=== PATIENT | female | born 1980 | race Caucasian/White ===

== ENCOUNTER 2019-02-22 15:30 | Emergency (ER) | payer OTHER ==
[2019-02-22 17:07] LABS: Basophils % (Auto) 0.4 % (0.0-1.8); Eosinophils # (Auto) 0.1 K/mm3 (0.0-0.4); Eosinophils % (Auto) 2.2 % (0.0-4.3); Hematocrit 35.5 % (30.3-42.9); Hemoglobin 12.2 gm/dl (10.1-14.3); Lymphocytes # (Auto) 1.1 K/mm3 (1.2-5.4); Lymphocytes % (Auto) 20.5 % (13.4-35.0); Mean Corpuscular HGB Conc 34 % (30-34); Mean Corpuscular Volume 86 fl (79-97); Monocytes # (Auto) 0.4 K/mm3 (0.0-0.8); Monocytes % (Auto) 7.3 % (0.0-7.3); Platelet Count 208 K/mm3 (140-440); Red Cell Distribution Width 13.2 % (13.2-15.2)
[2019-02-22 18:37] LABS: Alanine Aminotransferase 17 units/L (7-56); Albumin 4.1 g/dL (3.9-5); BUN/Creatinine Ratio 12; Blood Urea Nitrogen 7 mg/dL (7-17); Calcium 8.2 mg/dL (8.4-10.2); Hemolysis Index 10
[2019-02-22 19:39] LABS: Bacteria,Urine 1+ /HPF (Negative); Bilirubin,Urine NEG (Negative); Blood,Urine LG (Negative); Color,Urine Straw (Yellow); Protein,Urine <15 mg/dL mg/dL (Negative); Urobilinogen,Urine < 2.0 mg/dL (<2.0)
[2019-02-22] MEDS ORDERED: BENADRYL IV ONE (20:23)
[2019-02-22] MEDS ORDERED: REGLAN IV ONE (20:23)
[2019-02-22] MEDS ORDERED: TORADOL IV ONE (20:23)
[2019-02-22] MEDS ORDERED: NACL 0.9% 1000 ML 1,000 ML IV ONE (20:23)
--- NOTE | 2019-02-22 20:59 | Emergency Department Report ---
ED Headache HPI - General Chief Complaint: Headache Stated Complaint: PRESSURE/NAUSEA Time Seen by Provider: 02/22/19 20:04 - History of Present Illness Initial Comments: Patient is a 39-year-old female who presents emergency room with complaints of a frontal headache that began 2 days ago. she describes the pain as a pressure. She has intermittent nausea and vomiting when the pain becomes uncomfortable. She also has associated photophobia and discomfort with loud noises. She denies any vision changes, numbness, weakness, recent illness, fever, neck stiffness. States she has taken Tylenol and ibuprofen without much relief. States that she has had headaches similar to this in the past. She has a past medical history of hypertension and seasonal allergies. She denies any allergies medications. States her last menstrual cycle was last week. Allergies/Adverse Reactions: Allergies No Known Allergies Allergy (Verified 03/19/16 01:10) Home Medications: Ambulatory Orders Diclofenac Dr [Sudhakar Valle] 75 mg PO Q12H #60 tablet 06/02/13 traMADol [Ultram 50 MG tab] 50 mg PO Q6HR PRN #20 tablet 06/02/13 Loratadine [Claritin] 10 mg PO DAILY #30 tablet 03/28/15 Promethazine /Codeine [Phenergan/Codeine 6.25-10 mg/5 ml] 5 ml PO Q6H PRN #150 ml 03/28/15 Sulfamethoxazole/Trimethoprim [Bactrim DS TAB] 1 each PO BID #20 tablet 03/28/15 predniSONE [Deltasone] 40 mg PO QDAY #10 tab 03/28/15 Atenolol/Chlorthalidone [Tenoretic 50-25] 1 tab PO QDAY #30 tab 03/19/16 Benzonatate [Tessalon Perles] 100 mg PO Q8HR #10 capsule 03/19/16 Pseudoeph/Dm/Guaifen/Acetamin [Duraflu 307-49-521-60 mg Tab] 1 each PO BID #14 tablet 03/19/16 Cetirizine HCl [Zyrtec 10mg tab] 10 mg PO DAILY #14 tablet 02/22/19 Fluticasone [Flonase] 1 spray NS QDAY #1 bottle 02/22/19 Rizatriptan Benzoate [Maxalt] 10 mg PO PRN PRN #10 tab 02/22/19 ED Review of Systems ROS: Stated complaint: PRESSURE/NAUSEA Other details as noted in HPI Comment: All other systems reviewed and negative ED Past Medical Hx - Past Medical History Previous Medical History?: Yes Hx Hypertension: Yes (not taken medication in the past year due to no insurance) Hx Arthritis: Yes Additional medical history: chronic right knee pain - Surgical History Past Surgical History?: Yes Additional Surgical History: tubal ligation 2010 - Social History Smoking Status: Never Smoker - Medications Home Medications: Home Medications Medication Instructions Recorded Confirmed Last Taken Type Diclofenac Dr [Voltaren Dr] 75 mg PO Q12H #60 tablet 06/02/13 Unknown Rx traMADol [Ultram 50 MG tab] 50 mg PO Q6HR PRN #20 tablet 06/02/13 Unknown Rx Loratadine [Claritin] 10 mg PO DAILY #30 tablet 03/28/15 Unknown Rx Promethazine /Codeine 5 ml PO Q6H PRN #150 ml 03/28/15 Unknown Rx [Phenergan/Codeine 6.25-10 mg/5 ml] Sulfamethoxazole/Trimethoprim 1 each PO BID #20 tablet 03/28/15 Unknown Rx [Bactrim DS TAB] predniSONE [Deltasone] 40 mg PO QDAY #10 tab 03/28/15 Unknown Rx Atenolol/Chlorthalidone [Tenoretic 1 tab PO QDAY #30 tab 03/19/16 Unknown Rx 50-25] Benzonatate [Tessalon Perles] 100 mg PO Q8HR #10 capsule 03/19/16 Unknown Rx Pseudoeph/Dm/Guaifen/Acetamin 1 each PO BID #14 tablet 03/19/16 Unknown Rx [Duraflu 316-02-683-60 mg Tab] Cetirizine HCl [Zyrtec 10mg tab] 10 mg PO DAILY #14 tablet 02/22/19 Unknown Rx Fluticasone [Flonase] 1 spray NS QDAY #1 bottle 02/22/19 Unknown Rx Rizatriptan Benzoate [Maxalt] 10 mg PO PRN PRN #10 tab 02/22/19 Unknown Rx ED Physical Exam - General Limitations: No Limitations General appearance: alert, in no apparent distress - Head Head exam: Present: atraumatic, normocephalic - Eye Eye exam: Present: normal appearance, PERRL, EOMI. Absent: conjunctival injection, nystagmus, periorbital swelling, periorbital tenderness - ENT ENT exam: Present: normal orophraynx, mucous membranes moist, other (pale boggy turbinates with clear nasal drainage) - Neck Neck exam: Present: full ROM. Absent: meningismus - Respiratory Respiratory exam: Present: normal lung sounds bilaterally. Absent: respiratory distress, wheezes, rales, rhonchi, stridor, chest wall tenderness, accessory muscle use, decreased breath sounds, prolonged expiratory - Cardiovascular Cardiovascular Exam: Present: regular rate, normal rhythm, normal heart sounds. Absent: systolic murmur, diastolic murmur, rubs, gallop - Neurological Exam Neurological exam: Present: alert, oriented X3, CN II-XII intact, normal gait. Absent: motor sensory deficit - Psychiatric Psychiatric exam: Present: normal affect, normal mood - Skin Skin exam: Present: warm, dry, intact ED Course Vital Signs 02/22/19 02/22/19 02/22/19 15:38 16:18 22:56 Temperature 98.3 F 98.3 F Pulse Rate 91 H 89 80 Respiratory 18 18 18 Rate Blood Pressure 125/79 125/79 Blood Pressure 127/82 [Left] O2 Sat by Pulse 98 100 99 Oximetry ED Medical Decision Making - Lab Data Result diagrams: 02/22/19 16:24 02/22/19 16:24 Lab Results 02/22/19 02/22/19 02/22/19 Range/Units 16:24 16:24 Unknown WBC 5.4 (4.5-11.0) K/mm3 RBC 4.10 (3.65-5.03) M/mm3 Hgb 12.2 (10.1-14.3) gm/dl Hct 35.5 (30.3-42.9) % MCV 86 (79-97) fl MCH 30 (28-32) pg MCHC 34 (30-34) % RDW 13.2 (13.2-15.2) % Plt Count 208 (140-440) K/mm3 Lymph % (Auto) 20.5 (13.4-35.0) % [place] % (Auto) 7.3 (0.0-7.3) % Eos % (Auto) 2.2 (0.0-4.3) % Baso % (Auto) 0.4 (0.0-1.8) % Lymph # 1.1 L (1.2-5.4) K/mm3 [place] # 0.4 (0.0-0.8) K/mm3 Eos # 0.1 (0.0-0.4) K/mm3 Baso # 0.0 (0.0-0.1) K/mm3 Seg Neutrophils % 69.6 (40.0-70.0) % Seg Neutrophils # 3.8 (1.8-7.7) K/mm3 Sodium 140 (137-145) mmol/L Potassium 3.2 L (3.6-5.0) mmol/L Chloride 101.0 (98-107) mmol/L Carbon Dioxide 25 (22-30) mmol/L Anion Gap 17 mmol/L BUN 7 (7-17) mg/dL Creatinine 0.6 L (0.7-1.2) mg/dL Estimated GFR > 60 ml/min BUN/Creatinine Ratio 12 % Glucose 99 (65-100) mg/dL Calcium 8.2 L (8.4-10.2) mg/dL Total Bilirubin 0.70 (0.1-1.2) mg/dL AST 18 (5-40) units/L ALT 17 (7-56) units/L Alkaline Phosphatase 68 (35-129) units/L Total Protein 7.4 (6.3-8.2) g/dL Albumin 4.1 (3.9-5) g/dL Albumin/Globulin Ratio 1.2 % Urine Color Straw (Yellow) Urine Turbidity Slightly-cloudy (Clear) Urine pH 7.0 (5.0-7.0) Ur Specific [place] 1.003 (1.003-1.030) Urine Protein <15 mg/dl (Negative) mg/dL Urine Glucose (UA) Neg (Negative) mg/dL Urine Ketones Neg (Negative) mg/dL Urine Blood Lg (Negative) Urine Nitrite Neg (Negative) Urine Bilirubin Neg (Negative) Urine Urobilinogen < 2.0 (<2.0) mg/dL Ur Leukocyte Esterase Tr (Negative) Urine WBC (Auto) 4.0 (0.0-6.0) /HPF Urine RBC (Auto) 8.0 (0.0-6.0) /HPF U Epithel Cells (Auto) 11.0 (0-13.0) /HPF Urine Bacteria (Auto) 1+ (Negative) /HPF - Medical Decision Making Patient is a 39-year-old female who presents emergency room with complaints of a frontal headache that began 2 days ago. she describes the pain as a pressure. She has intermittent nausea and vomiting when the pain becomes uncomfortable. She also has associated photophobia and discomfort with loud noises. She denies any vision changes, numbness, weakness, recent illness, fever, neck stiffness. States she has taken Tylenol and ibuprofen without much relief. States that sh e has had headaches similar to this in the past. She has a past medical history of hypertension and seasonal allergies. She denies any allergies medications. States her last menstrual cycle was last week. VSS. no focal neuro deficits on exam. labs significant for hypokalemia, repleted with kdur. Patient given 1 L of fluids, Toradol, Reglan, Benadryl and headache completely resolved. Patient gi es prescription for Maxalt to take as needed for headache. pt given prescription for Flonase and Zyrtec for allergic rhinitis. advised pt to please use medication as prescribed. please increase your water intake. follow up with a primary care doctor and a neurologist in the next 2-3 days. return to the emergency room for any new or worsening symptoms. - Differential Diagnosis migraine, sinusitis, allergies, tension/cluster NARAYANAN Critical care attestation.: If time is entered above; I have spent that time in minutes in the direct care of this critically ill patient, excluding procedure time. ED Disposition Clinical Impression: Hypokalemia Headache Qualifiers: Headache type: unspecified Headache chronicity pattern: acute headache Intractability: not intractable Qualified Code(s): R51 - Headache Allergic rhinitis Qualifiers: Allergic rhinitis trigger: unspecified Allergic rhinitis seasonality: unspecified Qualified Code(s): J30.9 - Allergic rhinitis, unspecified Disposition: DC-01 TO HOME OR SELFCARE Is pt being admited?: No Does the pt Need Aspirin: No Condition: Stable Instructions: Hypokalemia (ED), Allergic Rhinitis (ED), Acute Headache (ED) Additional Instructions: Please use medication as prescribed. please increase your water intake. follow up with a primary care doctor and a neurologist in the next 2-3 days. return to the emergency room for any new or worsening symptoms. Prescriptions: Fluticasone [Flonase] 1 spray NS QDAY #1 bottle Rizatriptan Benzoate [Maxalt] 10 mg PO PRN PRN #10 tab PRN Reason: Headache Cetirizine HCl [Zyrtec 10mg tab] 10 mg PO DAILY #14 tablet Referrals: [facility] [Provider Group] - 2-3 Days BASIM HADDAD MD [Staff Physician] - 2-3 Days Forms: Work/School Release Form(ED) Time of Disposition: 22:40 Print Language: MONGOLIAN
[2019-02-22] MEDS ORDERED: K-DUR PO ONE (21:30)
[2019-02-22 22:57] VITALS: BP 127/82
== END 2019-02-22 22:56 | disposition home or self-care (01) ==
LOC: ED 15:30
DX: J30.9 Allergic rhinitis, unspecified (principal); E87.6 Hypokalemia; I10 Essential (primary) hypertension; M19.90 Unspecified osteoarthritis, unspecified site; G89.29 Other chronic pain; Z98.51 Tubal ligation status; Z79.899 Other long term (current) drug therapy
CPT/HCPCS: 36415; 80053; 81001; 85025; 96361; 96374; 96375; 99283; J1200; J1885; J2765; J7030